=== PATIENT | female | born 1980 | race Caucasian/White ===

== ENCOUNTER → 2021-04-17 02:00 | Outpatient (CLI) | payer BC, SELFPAY ==
[2021-04-17 17:54] LABS: SARS-CoV-2 RNA PCR Negative
== END ==
PROVIDERS: PCP Internal Medicine; Visit Provider Internal Medicine
DX: R68.89 Other general symptoms and signs (principal); Z20.822 Contact with and (suspected) exposure to COVID-19
CPT/HCPCS: C9803; U0003; U0005

== ENCOUNTER → 2021-11-05 09:43 | Outpatient (CLI) | payer BC, SELFPAY ==
--- NOTE | ~2021-11-05 | US_ITS ---
EXAMINATION: US thyroid DATE: 11/05/2021 10:02 INDICATION: Nontoxic single thyroid nodule TECHNIQUE: Multiple ultrasound images of the thyroid were obtained. COMPARISON: 08/02/2018 FINDINGS: The right thyroid lobe measures 5.6 x 1.8 x 2.0 cm. The left thyroid lobe measures 5.7 x 1.7 x 1.8 c m. Wider than tall 6 mm solid hypoechoic nodule with ill-defined margins and without echogenic foci at the superior right thyroid (TI-RADS 4, moderately suspicious , FNA if >=1.5 cm, annual followup is >=1 cm). There is normal echotexture, echogenicity and vascular flow throughout the thyroid gland. IMPRESSION: 1. 6 mm TI RADS 4 right thyroid nodule which remains below size criteria for either biopsy or follow- up. Reviewed, dictated and finalized at location B. IMPRESSION: 1. 6 mm TI RADS 4 right thyroid nodule which remains below size criteria for ei ther biopsy or follow-up.
== END ==
PROVIDERS: PCP Internal Medicine; Visit Provider Internal Medicine
DX: E04.1 Nontoxic single thyroid nodule (principal)
CPT/HCPCS: 76536

== ENCOUNTER 2022-07-28 00:56 | Day surgery (SDC) | payer BC, SELFPAY ==
[2022-07-19 13:56] VITALS: BMI 24.2
--- NOTE | 2022-07-27 10:30 | PM.HPGS ---
History of Present Illness History of Present Illness Consent: Risks, benefits, and alternatives have been discussed and questions answered. Patient agrees to proceed with procedure. Chief complaint: family hx colon ca, neoplasm screening Narrative: Della Bennett is a 42 year old female here for colon cancer screening. She has a family history of colon cancer, her father. Also she has had a polyp removed in the past about 5 years ago. Review of Systems Review of Systems: All systems reviewed & are unremarkable except as noted in HPI and below PMFSH Family History Family History Mother Patient's mother is in good health Patient's mother is Father Patient's father is Family history of lung cancer, Onset Age: 46 Social History Social History Smoking packs per day: 1 Smoking cigarettes per day: 20.0 Years smoked: 15 Smoking pack-years: 15.00 Smoking status: Former smoker Tobacco type: cigarettes Second hand tobacco smoke exposure: No Smoking end date: 05/16/15 Alcohol intake: never Substance use: never Substance use type: does not use Living arrangements: with family Spiritual care concerns: No Meds Home Medications and Allergies Home Medications Medication Instructions Recorded Confirmed Type No Home Medications 10/19/21 07/19/22 History Allergies Allergy/AdvReac Type Severity Reaction Status Date / Time Sulfa (Sulfonamide Allergy Unknown Other Verified 07/28/22 07:00 Antibiotics) SEAFOOD Allergy Intermediate ITCHING Uncoded 07/19/22 13:55 SHELLFISH Allergy Intermediate RASH Uncoded 07/19/22 13:55 Exam Const: General: alert Orientation/consciousness: patient oriented x3 Resp: Auscultation: clear to auscultation bilaterally Cardio: Rhythm: regular rhythm GI: GI Palp: Yes Soft to palpation and No Tenderness to palpation present (GI) Neuro: General: patient oriented x3 Assessment and Plan Assessment and plan (1) Colon cancer screening: Code(s): Z12.11 - Encounter for screening for malignant neoplasm of colon Status: Acute Assessment and Plan: Colonoscopy with possible biopsy or polypectomy or cautery or injection of substances.
[2022-07-28 07:00] VITALS: BP 130/80; PULSE 92; RESP 18; TEMP 36.4; O2SAT 100
[2022-07-28] MEDS: LACTATED RINGERS 1,000 ML 150 ML IV CONT (07:02)
--- NOTE | 2022-07-28 07:28 | P.PNAN_ITS ---
Anes - Initial Pre Proc Eval Procedure: Operation Date: 07/28/22 08:00 Proposed Procedures p Screening Colonoscopy - Kel Shipley MD Date/Time: 07/28/22 07:28 Surgeon: Kel Shipley MD Pre Op Diagnosis: family hx colon ca, neoplasm screening Patient Data Age: 42 Gender: F Height: 1.65 m Weight: 70.2 kg Last Vital Signs Temp 97.5 F L 07/28/22 07:00 Pulse 92 07/28/22 07:00 Resp 18 07/28/22 07:00 BP 130/80 07/28/22 07:00 Pulse Ox 100 07/28/22 07:00 O2 Del Method Room Air 07/28/22 07:00 Allergies Allergy/AdvReac Type Severity Reaction Status Date / Time Sulfa (Sulfonamide Allergy Unknown Other Verified 07/28/22 07:00 Antibiotics) SEAFOOD Allergy Intermediate ITCHING Uncoded 07/19/22 13:55 SHELLFISH Allergy Intermediate RASH Uncoded 07/19/22 13:55 Home Medications Medication Instructions Recorded Confirmed Type No Home Medications 10/19/21 07/19/22 History Patient hx anesthesia problems: none Family hx anesthesia problems: none Results Review: All pre-operative results and documents have been reviewed as part of the pre- operative evaluation. [facility] Family History Family History Mother Patient's mother is in good health Patient's mother is Father Patient's father is Family history of lung cancer, Onset Age: 46 Social History Social History Smoking packs per day: 1 Smoking cigarettes per day: 20.0 Years smoked: 15 Smoking pack-years: 15.00 Smoking status: Former smoker Tobacco type: cigarettes Second hand tobacco smoke exposure: No Smoking end date: 05/16/15 Alcohol intake: never Substance use: never Substance use type: does not use Living arrangements: with family Spiritual care concerns: No Anes - Eval Final PreProcedure Day of Procedure 07/28/22 07:28 Patient weight: normal Heart: regular rate and rhythm Lungs: clear to auscultation Airway: Mallampati scale class II Neurological: alert and oriented Last oral intake: >/= 8 hours ASA classification: II Emergent: no Anesthetic plan: proceed Anesthesia type and monitoring: general GIVS and standard monitoring Results Review: All pre-operative results and documents have been reviewed as part of the pre- operative evaluation. Informed Consent: The patient's anesthetic plan and its attendant risks and benefits were discussed with the patient/family/POA. Questions were solicited and answers provided to the satisfaction of the patient/family/POA.
[2022-07-28 08:19] VITALS: BP 87/55; PULSE 73; RESP 16; O2SAT 99
[2022-07-28 08:29] VITALS: BP 115/72; PULSE 72; RESP 15; O2SAT 100
[2022-07-28 08:39] VITALS: BP 110/69; PULSE 79; RESP 16; O2SAT 99
== END 2022-07-28 08:48 | disposition home or self-care (01) ==
PROVIDERS: PCP Internal Medicine; Visit Provider Internal Medicine Gastroenterology
PROC: 0DJD8ZZ Inspection of Lower Intestinal Tract, Via Natural or Artificial Opening Endoscopic (ICD-10-PCS; CPT 45378; principal; 2022-07-28 08:00)
DX: Z12.11 Encounter for screening for malignant neoplasm of colon (principal); Z80.0 Family history of malignant neoplasm of digestive organs; Z86.010 Personal history of colon polyps; Z87.891 Personal history of nicotine dependence
CPT/HCPCS: 45378; J2704; J7120

== ENCOUNTER 2023-05-18 10:56 | Outpatient (CLI) | payer BC, SELFPAY ==
[2023-05-18 11:58] LABS: Appearance Urine Clear (Clear); Bacteria Urine None Seen /hpf; Bilirubin Urine Negative (Negative); Blood Urine 1+ (Negative); Color Urine Yellow (Yellow); Glucose Urine UA Negative (Negative); Ketones Urine Negative (Negative); Leukocyte Esterase Ur Negative LEU/UL (NEGATIVE); Need Manual Microscopic Reviewed; Nitrate Urine Negative (Negative); Non Pathogenic Casts 0-2; Protein Urine Negative (Negative); RBC Urine 0-2 /hpf (0-2); Specific Grav Ur 1.003 (1.001-1.035); Squamous Epithelial Cell Urine None seen /hpf (Few); Urobilinogen Urine 0.2 mg/dL (<2.0); WBC Urine 0-5 /hpf (0-3); pH Urine 5.5 (5.0-9.0)
[2023-05-18 12:05] LABS: Add Urine Microscopic? YES
== END 2023-05-18 10:57 | disposition home or self-care (01) ==
LOC: ANHLAB 10:58
PROVIDERS: PCP Internal Medicine; Visit Provider Physician Assistant
DX: R30.0 Dysuria (principal)
CPT/HCPCS: 81001; 87077; 87086; 87186

== ENCOUNTER 2024-10-25 11:26 | Outpatient (CLI) | payer BC, SELFPAY ==
--- NOTE | ~2024-10-25 | XR_ITS ---
Cervical Spine: AP, lateral, open-mouth views Clinical History: Pain Findings: The normal lordotic curve is maintained. The vertebral bodies and posterior elements appea r intact. The intervertebral disc spaces are well maintained. Pre-vertebral soft tissues are unremar kable. Impression: No significant abnormality is seen. Reviewed, dictated and finalized at [facility]. Impression: No significant abnormality is seen.
--- OUTSIDE RECORDS SUMMARY | 2024-10-25 12:26 | XMS_ITS | Encounter Summary ---
Author Organization [facility] Address [address] [place] [address] Phone Care Team Providers Care Endo Tech Name Role Phone Sharri Valdes MD Unavailable [phone] Skyler Collier DO Primary Care Provider [phone] Selene Moore NP Unavailable [phone] Encounter Details Date Type Department Care Team (Late st Contact Info) Description 09/14/2024 Telephone [facility] Surgery [address] [facility] Floor 8 [place] [address] Palak Vergara MD [facility] [address] Social History Tobacco Use Types Packs/Day Years Used Date Smoking Tobacco: Every Day Comments No Sex and Gender Information Value Date Recorded Sex Assigned at Not on file 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 Gender Identity Not on file Sexual Orientation Not on file documented as of this encounter Plan of Treatment Not on file documented as of this encounter Visit Diagnoses Not on filedocumented in this encounter Care Teams Endo Tech Relationship Specialty Start Date End Date Skyler Collier DO [address] [facility] [address] [facility] 21 [place], [place] [id number] PCP - General Internal Medicine 05/24/24 Sharri Valdes MD Consulting Physician Obstetrics and Gynecology 10/26/21 Selene Moore NP [address] [place] [address] Nurse Practitioner Obstetrics and Gynecology 08/07/24 documented as of this encounter
--- OUTSIDE RECORDS SUMMARY | 2024-10-25 12:26 | XMS_ITS | Encounter Summary ---
Author Organization [facility] Address [address] [place] [address] Phone Care Team Providers Care Marine Pilot Name Role Phone Sharri Valdes MD Unavailable [phone] Skyler Collier DO Primary Care Provider Selene Moore NP Unavailable [phone] Encounter Details Date Type Department Care Team (Late st Contact Info) Description 08/28/[address] 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 Gender Identity Not on file Sexual Orientation Not on file documented as of this encounter Plan of Treatment Not on file documented as of this encounter Visit Diagnoses Not on filedocumented in this encounter Care Teams Marine Pilot Relationship Specialty Start Date End Date Skyler Collier DO [address] [facility] 21 [place], [place] [id number] PCP - General Internal Medicine 05/24/24 Sharri Valdes MD Consulting Physician Obstetrics and Gynecology 10/26/21 Selene Moore NP [address] [place] [address] Nurse Practitioner Obstetrics and Gynecology 08/07/24 documented as of this encounter
--- OUTSIDE RECORDS SUMMARY | 2024-10-25 12:27 | XMS_ITS | Clinical Summary ---
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 Mass of breast 11/03/2015 Encounters Date Type Department Care Team Description 10/11/2024 10:04 AM CDT - 10/11/2024 11:59 PM CDT Hospital Encounter [facility] [address] [facility] [address] [place] [address] Screening mammogram, encounter for Discharge Disposition: Discharge to home or self care 09/14/2024 Telephone [facility] Surgery [address] [place] [address] Floor 8 [place] [address] Palak Vergara MD 09/10/2024 Telephone [facility] Surgery [address] [place] [address] Floor 8 [place] [address] Palak Vergara MD Scheduling Appointments (/) 08/28/2024 Telephone [facility] Surgery [address] [place] [address] Floor 5 [place] [address] Aft, Gaye Banks MD PhD 08/24/[address] [address] Selene Moore NP Referral Status 08/10/[address] [address] Selene Moore NP Referral Records 08/09/2024 Telephone [facility] Surgery [address] [facility] Floor 8 [place] [address] Carmelina Luis 08/07/[address] [address] Caryn Dominguez RN from Last 3 Months Surgical History Surgery Date Site/Laterality Comments BREAST BIOPSY Right BENIGN Family History Medical History Relation Name Comments Lung cancer Father Family history of lung cancer - (Added by TW Conv) Lung cancer Mother Family history of lung cancer - (Added by TW Conv) Relation Name Status Comments Father Mother Social History Tobacco Use Types Packs/Day Years Used Date Smoking Tobacco: Every Day Comments No Sex and Gender Information Value Date Recorded Sex Assigned at Not on file 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 Gender Identity Not on file Sexual Orientation Not on file Obstetrics History Para Term AB IAB SAB Ectopic Multiple Livin g Live Births 1 1 1 Date Outcome GA Total Labor Labor/2nd/3rd Weight Sex Type Anes PTL Lorenza A1 A5 Name Clin Term Plan of Treatment Health Maintenance Due Date Last Done Comments Cervical Cancer Screening 1980 Depression Screening 1980 Hepatitis C Screening 1980 DTaP/Tdap/Td Vaccine (1 - Tdap) 1991 Varicella Vaccines (1 of 2 - 13+ 2-dose series) 1993 Hepatitis B Screening 1998 Regular Well Visit/Exam 18-64 1998 Pneumococcal vaccine <65 (1 of 2 - PCV) 1999 Covid-19 Vaccine ( season) 2024 06/06/2021, 01/06/2021, 12/16/2020 Influenza Vaccine (Season Ended) 2025 Breast Cancer Screening-Mammogram 10/11/2025 10/11/2024, 10/11/2023, 10/05/2022, Additional history exists HPV Vaccines Aged Out No longer eligi ble based on patient's age to complete this topic Procedures Procedure Name Priority Date/Time Associated Diagnosis Comments SCREENING MAMMOGRAM BILATERAL W OSEI Schedule Routine, Read Routine (OP Routine) 10/11/2024 10:30 AM CDT Screening mammogram, encounter for from Last 3 Months Results * Screening Mammogram Bilateral W Osei (10/11/2024 10:30 AM CDT) Anatomical Region Laterality Modality Breast Bilateral Mammography Impressions 10/11/2024 10:32 AM CDT BI-RADS ATLAS category (overall): 2 - Benign There is no mammographic evidence of malignancy. A 1 year screening mammogram is recommended. The patient has been or will be contacted. We recommend annual screening mammography for women at average risk of breast cancer beginning at age 40, based on guidelines of the [employer] (ACR Practice Parameter for the Performance of Screening and Diagnostic Mammography) and [employer] [place]. For women with and elevated risk of breast cancer, please refer to the ACR Practice Parameter for specific screening recommendations. The patient will be entered into a reminder system with a target due date of 1 year for her next screening exam. Narrative 10/11/2024 10:32 AM CDT Screening Mammogram Bilateral W Osei: 10/11/24 The study was acquired using full field digital technology and interpreted from soft copy. 2D digital mammographic views, as well as 3D digital tomosynthesis were performed in the CC and MLO projections. CLINICAL: Screening mammogram, encounter for. No relevant medical history has been documented for this patient. No known family history of breast cancer. COMPARISONS: 10/11/2023 Screening Mammogram Bilateral W Osei 10/05/2022 Screening Mammogram Bilateral W Osei 10/26/2021 Diagnostic Mammogram Right W Osei 10/26/2021 US Breast Right Limited 09/21/2021 Screening Mammogram Bilateral W Osei BREAST TISSUE: There are scattered areas of fibroglandular density. FINDINGS: Unchanged benign mass in the right breast, containing a biopsy marker clip. This corresponds to a known fibroadenoma. There is also a benign cyst in the right breast. There is no new suspicious finding in either breast on mammogram. us Self Screening Mammogram IMG MAMMO PROCEDURES Fi nal Result from Last 3 Months Insurance [place] Care Teams Resource Room Teacher Relationship Specialty Start Date End Date Skyler Collier DO [address] [place], [place] [id number] PCP - General Internal Medicine 05/24/24 Sharri Valdes MD Consulting Physician Obstetrics and Gynecology 10/26/21 Selene Moore NP [address] [place] [address] Nurse Practitioner Obstetrics and Gynecology 08/07/24
--- OUTSIDE RECORDS SUMMARY | 2024-10-25 12:27 | XMS_ITS | Referral Summary ---
Author Organization [facility] Medical Office Building [address] [place] [address] Care Team Providers Care Bottle Assembler Name Role Phone Sharri Valdes MD Unavailable [phone] Skyler Collier DO Primary Care Provider [phone] Selene Moore NP Unavailable [phone] Encounters Date Type Department Care Team Description 10/11/2024 10:04 AM CDT - 10/11/2024 11:59 PM CDT Hospital Encounter [facility] Medical Office Bldg 1 [facility] [address] [facility] [address] [place] [address] Screening mammogram, encounter for Discharge Disposition: Discharge to home or self care 09/14/2024 Telephone [facility] Surgery [address] [place] [address] 8 [place] [address] Palak Vergara MD 09/10/2024 Telephone [facility] Surgery [address] [place] [address] Floor 8 [place] [address] Palak Vergara MD Scheduling Appointments (/) 08/28/2024 Telephone [facility] Surgery [address] [place] [address] Floor 5 [place] [address] Aft, Gaye Banks MD PhD 08/24/[address] [address] Selene Moore NP Referral Status 08/10/2024 Telephone [place] [address] [place] [address] Selene Moore NP Referral Records 08/09/2024 Telephone [facility] Surgery [address] 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 For women [...] nal Result from Last 3 Months Insurance ([employer]) [address] [place] [id number] [place] Care Teams Bottle Assembler Relationship Specialty Start Date End Date Skyler Collier DO [address] [place] [address] PCP - General Internal Medicine 05/24/24 Sharri Valdes MD Consulting Physician Obstetrics and Gynecology 10/26/21 Selene Moore NP [facility] [place] [address] Nurse Practitioner Obstetrics and Gynecology 08/07/24
== END 2024-10-25 11:27 | disposition home or self-care (01) ==
PROVIDERS: PCP Internal Medicine; Visit Provider Internal Medicine
DX: M54.2 Cervicalgia (principal)
CPT/HCPCS: 72040